=== PATIENT | male | born 2000 | race Caucasian/White ===

== ENCOUNTER 2018-04-09 10:40 | Emergency (ER) | payer OTHER ==
[2018-04-09] MEDS ORDERED: ONDANSETRON 4 MG/2 ML VIAL IVP ONE (11:01)
[2018-04-09] MEDS ORDERED: NS 1,000 ML IV ONE ×2 (11:01→11:29)
--- NOTE | 2018-04-09 11:02 | EDPHY ---
General - History Smoking Status: Never smoked Time Seen by Provider: 04/09/18 10:56 Narrative: Independent physician evaluation. I evaluated and participated in the management of the patient. I also evaluated the patient independently. My co-signature indicates that I have reviewed this chart and I agree with the findings and plan of care as documented. My personal H&P findings include: The patient presents to the ED with a 24 hr history of vomiting and mild abdominal pain. The patient denies any recent antibiotic use or travel outside the [place]. The patient denies any respiratory symptoms or fever. Physical exam: General Appearance: Alert, no distress Eyes: Pupils equal and round no pallor or injection ENT, Mouth: Mucous membranes moist Respiratory: There are no retractions, lungs are clear to auscultation Cardiovascular: Regular rate and rhythm Gastrointestinal: Abdomen is soft and nontender, no masses, bowel sounds normal Neurological: A&O, normal motor function, normal sensory exam, normal cranial nerves Skin: Warm and dry, no rashes Musculoskeletal: Neck is supple nontender Extremities: symmetrical, full range of motion Psychiatric: Patient is oriented X 3, there is no agitation ED course: Patient presents to the ED with symptoms consistent with gastroenteritis. He is treated with IV fluids in the emergency department. He was also given anti emetics. The patient had marked improvement of his symptoms. The patient will be discharged home with a prescription for Zofran. His abdominal examination has remained benign. I do not feel that he warrants additional imaging. (Shyam Marshall) CHIEF COMPLAINT: Abdominal pain, vomiting HISTORY OF PRESENT ILLNESS: Patient presents with mother at bedside with complaints of "crazy abdominal pain." He states sudden onset of epigastric abdominal pain yesterday afternoon while at rest. It has been constant duration. Rated as severe, 10/10. Mild improvement when he supine Worse with palpation, sitting up and movement. Associated with 6 episodes of vomiting yesterday. Nonbloody emesis. No constipation or diarrhea. No chest pain, cough or shortness of breath. No fever. No previous episode of this. No abdominal surgeries. No trauma or injury. No other associated complaints or modifying factors. REVIEW OF SYSTEMS: 10 systems were reviewed and negative with the exception of the elements mentioned in the history of present illness. PCP: Located in [place] SPECIALISTS: None PAST MEDICAL HISTORY: Asthma PAST SURGICAL HISTORY: No abdominal surgical history SOCIAL HISTORY: Nonsmoker. Occasional alcohol marijuana use. [employer] student. Originally from [place] FAMILY HISTORY: Noncontributory EXAMINATION: General Appearance: Alert, no distress. Appears to be in discomfort. Head: normocephalic, atraumatic Eyes: Pupils equal and round, no conjunctival pallor or injection ENT, Mouth: Mucous membranes slightly dry. Airway patent. Neck: Normal inspection, supple, non-tender Respiratory: Lungs are clear to auscultation Cardiovascular: Regular rate and rhythm no murmur. Gastrointestinal: Abdomen is soft and nondistended. There is tenderness in the epigastrium periumbilical region. No right lower quadrant tenderness. No guarding. No tympany rigidity. No CVA tenderness. Bowel sounds are present. Neurological: A&O, nonfocal, light sensory symmetric. Skin: Warm and dry, no rash. No petechiae. No purpura Extremities: Nontender, no pedal edema Psychiatric: Mood and affect normal DIFFERENTIAL DIAGNOSES: Including but not limited to pancreatitis, cholecystitis, cholelithiasis, gastritis, THC hyperemesis, colitis, appendicitis MDM: 11:00 a.m. Epigastric and periumbilical abdominal pain over the past 24 hr with multiple episodes of vomiting described. He does appear to be in discomfort but his vital signs are within limits. He is in no acute distress. He does not meet SIRS criteria. IV is currently being placed while I was examining the patient. I have ordered IV fluid pain medication. Laboratory studies pending. 12:15 p.m. Laboratory studies reveal minimal leukocytosis and minimal elevation of total bilirubin. No transaminitis. He reports he is feeling significantly better at this time we minimal pain. I have ordered a GI cocktail will re-evaluate 1:15 p.m. Patient re-evaluated. He is tolerating intake by mouth. His symptoms have resolved. He has no abdominal pain at this time. We discussed the likelihood gastritis and/or gastroenteritis. We discussed the need to refrain from using alcohol and/or THC. We discussed follow up with primary care physician, and he has an appointment tomorrow morning with them. We also discussed ED precautions and he is discharged home stable condition with symptomatic prescription medications. SUPERVISION: Patient was evaluated and examined in conjunction with my secondary supervising physician as documented. We have both examined the patient. CONSULTATION: None (Lorenzo Centeno) - Objective Vital Signs: Initial Vital Signs Temperature (C) 97.7 F 04/09/18 10:44 Heart Rate 95 04/09/18 10:44 Respiratory Rate 22 H 04/09/18 10:44 Blood Pressure 145/94 H 04/09/18 10:44 O2 Sat (%) 100 04/09/18 10:44 O2 Delivery Mode Room Air Allergies/Adverse Reactions: No Known Allergies Allergy (Unverified 04/09/18 10:43) Home Medications: Medication Instructions Recorded Ondansetron Odt [Zofran Odt 4 mg 4 mg PO Q6 PRN #12 tab 04/09/18 (*)] Promethazine HCl [Phenergan 25mg 25 mg PO Q8 PRN #12 tab 04/09/18 (*)] Sucralfate [Carafate Oral Liquid 10 ml PO QID PRN #240 ml 04/09/18 100 mg/ml] Laboratory Results: Laboratory Results 04/09/18 11:00 04/09/18 11:00 04/09/18 04/09/18 04/09/18 11:06 11:00 11:00 WBC 15.03 10^3/uL H 10^3/uL (3.80-9.50) RBC 5.87 10^6/uL 10^6/uL (4.40-6.38) Hgb 16.7 g/dL g/dL (13.7-17.5) POC Hgb 17.7 gm/dL H gm/dL (13.7-17.5) Hct 47.3 % % (40.0-51.0) POC Hct 52 % H % (40-51) MCV 80.6 fL L fL (81.5-99.8) MCH 28.4 pg pg (27.9-34.1) MCHC 35.3 g/dL g/dL (32.4-36.7) RDW 13.2 % % (11.5-15.2) Plt Count 417 10^3/uL H 10^3/uL (150-400) MPV 9.5 fL fL (8.7-11.7) Neut % (Auto) 77.2 % H % (39.3-74.2) Lymph % (Auto) 13.2 % L % (15.0-45.0) [place] % (Auto) 9.2 % % (4.5-13.0) Eos % (Auto) 0.0 % L % (0.6-7.6) Baso % (Auto) 0.1 % L % (0.3-1.7) Nucleat RBC Rel Count 0.0 % % (0.0-0.2) Absolute Neuts (auto) 11.59 10^3/uL H 10^3/uL (1.70-6.50) Absolute Lymphs (auto) 1.99 10^3/uL 10^3/uL (1.00-3.00) Absolute Monos (auto) 1.39 10^3/uL H 10^3/uL (0.30-0.80) Absolute Eos (auto) 0.00 10^3/uL L 10^3/uL (0.03-0.40) Absolute Basos (auto) 0.02 10^3/uL 10^3/uL (0.02-0.10) Absolute Nucleated RBC 0.00 10^3/uL 10^3/uL (0-0.01) Immature Gran % 0.3 % % (0.0-1.1) Immature Gran # 0.04 10^3/uL 10^3/uL (0.00-0.10) POC Sodium 139 mEq/L mEq/L (135-145) Sodium 137 mEq/L mEq/L (135-145) POC Potassium 3.7 mEq/L mEq/L (3.3-5.0) Potassium 4.3 mEq/L mEq/L (3.3-5.0) POC Chloride 101 mEq/L mEq/L (97-110) Chloride 100 mEq/L mEq/L (97-110) Carbon Dioxide 20 mEq/l L mEq/l (22-31) Anion Gap 17 mEq/L H mEq/L (6-14) POC BUN 18 mg/dL mg/dL (7-23) BUN 19 mg/dL mg/dL (7-23) Creatinine 1.1 mg/dL mg/dL (0.7-1.3) POC Creatinine 1.1 mg/dL mg/dL (0.7-1.3) Estimated GFR > 60 Glucose 130 mg/dL H mg/dL (70-100) POC Glucose 134 mg/dL H mg/dL (70-100) Calcium 10.3 mg/dL mg/dL (8.5-10.4) Total Bilirubin 1.9 mg/dL H mg/dL (0.1-1.4) Conjugated Bilirubin 0.2 mg/dL mg/dL (0.0-0.5) Unconjugated Bilirubin 1.7 mg/dL H mg/dL (0.0-1.1) AST 30 IU/L IU/L (17-59) ALT 45 IU/L IU/L (21-72) Alkaline Phosphatase 108 IU/L IU/L (38-126) Total Protein 9.0 g/dL H g/dL (6.3-8.2) Albumin 5.2 g/dL H g/dL (3.5-5.0) Lipase 42 IU/L IU/L (23-300) Medications Given: Discontinued Medications Al Hydroxide/Mg Hydroxide (Maalox Susp) 30 ml PO ONCE ONE Stop: 04/09/18 12:24 Last Admin: 04/09/18 12:27 Dose: 30 ml Famotidine (Pepcid) 20 mg IVP EDNOW ONE Stop: 04/09/18 11:04 Last Admin: 04/09/18 11:25 Dose: 20 mg Hyoscyamine Sulfate (Levsin, Hyomax-Sl) 0.25 mg PO ONCE ONE Stop: 04/09/18 12:24 Last Admin: 04/09/18 12:27 Dose: 0.25 mg Sodium Chloride (Ns) 1,000 mls @ 0 mls/hr IV EDNOW ONE; Wide Open PRN Reason: Protocol Stop: 04/09/18 11:02 Last Admin: 04/09/18 11:26 Dose: 1,000 mls Sodium Chloride (Ns) 1,000 mls @ 0 mls/hr IV EDNOW ONE; Wide Open PRN Reason: Protocol Stop: 04/09/18 11:30 Last Admin: 04/09/18 12:06 Dose: 1,000 mls Lidocaine (Lidocaine 2% Viscous) 15 ml PO ONCE ONE Stop: 04/09/18 12:24 Last Admin: 04/09/18 12:27 Dose: 15 ml Morphine Sulfate (Morphine) 6 mg IVP EDNOW ONE Stop: 04/09/18 11:02 Last Admin: 04/09/18 11:25 Dose: 6 mg Ondansetron HCl (Zofran) 4 mg IVP EDNOW ONE Stop: 04/09/18 11:02 Last Admin: 04/09/18 11:27 Dose: 4 mg Point of Care Test Results: Chemistry 04/09/18 11:06 POC Sodium 139 mEq/L mEq/L (135-145) POC Potassium 3.7 mEq/L mEq/L (3.3-5.0) POC Chloride 101 mEq/L mEq/L (97-110) POC BUN 18 mg/dL mg/dL (7-23) POC Creatinine 1.1 mg/dL mg/dL (0.7-1.3) POC Glucose 134 mg/dL H mg/dL (70-100) ISTAT H&H 04/09/18 11:06 POC Hgb 17.7 gm/dL H gm/dL (13.7-17.5) POC Hct 52 % H % (40-51) Departure - Departure Disposition: Home, Routine, Self-Care Clinical Impression: Epigastric pain Gastritis Qualifiers: Gastritis type: unspecified gastritis Chronicity: acute Gastritis bleeding: without bleeding Qualified Code(s): K29.00 - Acute gastritis without bleeding Condition: Good Instructions: Gastritis (ED), Clear Liquid Diet (ED), Epigastric Pain (ED) Additional Instructions: 1. [id number] Pepcid 20 mg twice daily indefinitely 2. Zofran medication as prescribed as needed for nausea 3. Promethazine medication as prescribed as needed for nausea 4. Carafate medication as prescribed as needed for nausea and discomfort 5. Keep your appointment with primary care physician tomorrow 6. ED precautions for returning pain, vomiting, fever Referrals: NONE *PRIMARY CARE P,. [Primary Care Provider] - As per Instructions Patric Gutierrez MD [Medical Doctor] - As per Instructions Stand Alone Forms: School Excuse Prescriptions: Ondansetron Odt [Zofran Odt 4 mg (*)] 4 mg PO Q6 PRN #12 tab PRN Reason: Nausea/Vomiting, Use 1st Promethazine HCl [Phenergan 25mg (*)] 25 mg PO Q8 PRN #12 tab PRN Reason: Nausea/Vomiting, Use 1st Sucralfate [Carafate Oral Liquid 100 mg/ml] 10 ml PO QID PRN #240 ml PRN Reason: abdominal pain
[2018-04-09] MEDS ORDERED: FAMOTIDINE 20 MG/2 ML SDV IVP ONE (11:03)
[2018-04-09 11:17] LABS: PLATELET COUNT 417 10^3/uL (150-400)
[2018-04-09] MEDS ORDERED: MAG HYDROX/AL HYDROX/SIMETH 30 ML UDCUP PO ONE (12:23)
[2018-04-09] MEDS ORDERED: HYOSCYAMINE SULFATE 0.125 MG TAB PO ONE (12:23)
[2018-04-09] MEDS ORDERED: LIDOCAINE 2% VISCOUS 15 ML UDCUP PO ONE (12:23)
[2018-04-09 13:30] VITALS: BP 131/64
== END 2018-04-09 13:33 | disposition home or self-care (01) ==
DX: K29.00 Acute gastritis without bleeding (principal)
CPT/HCPCS: 82435-PO; 82565-PO; 82947-PO; 84132-PO; 84295-PO; 84520-PO; 85014-PO; 96374; J2270; J2405

== ENCOUNTER 2018-04-10 09:37 | Emergency (ER) | payer OTHER ==
[2018-04-10] MEDS ORDERED: ONDANSETRON 4 MG/2 ML VIAL ONE (09:57)
--- NOTE | 2018-04-10 09:57 | EDPHY ---
H & P Time Seen by Provider: 04/10/18 09:57 HPI/ROS: CHIEF COMPLAINT: Nausea vomiting and diarrhea HISTORY OF PRESENT ILLNESS: Patient is a 17-year-old male here with his parents complaint of continued nausea vomiting diarrhea abdominal pain. He was seen here yesterday with the same symptoms that he did not have diarrhea at that time. He was discharged with Zofran, Phenergan, Maalox and Pepcid. He says that he took Phenergan yesterday evening and was able to sleep and had no vomiting or diarrhea. This morning he tried taking finger and again and continued vomiting. He did not try taking Zofran. He has had subjective fevers for the last 3 days. Diarrhea has been nonbloody. He has had no recent travel. He has had no recent antibiotics. States that 2 days ago there is blood tinged is emesis but no blood since. He has no history of Crohn's or ulcerative colitis. He has no history of abdominal surgery. He points to his epigastrium as source of his pain. REVIEW OF SYSTEMS: Constitutional: + fever, + chills. Eyes: No discharge. ENT: No sore throat. Cardiovascular: No chest pain, no palpitations. Respiratory: No cough, no shortness of breath. Gastrointestinal: + abdominal pain, + vomiting. Genitourinary: No hematuria. Musculoskeletal: No back pain. Skin: No rashes. Neurological: No headache. Smoking Status: Never smoked Physical Exam: General Appearance: Alert and no distress. Eyes: Pupils equal and round no injection. Respiratory: Chest is nontender, lungs are clear to auscultation. Cardiac: regular rate and rhythm. Gastrointestinal: Abdomen is soft and tender to the epigastrium and right upper quadrant, no masses, bowel sounds normal. No peritoneal signs Musculoskeletal: Neck is supple and nontender. Extremities have full range of motion and are nontender. Skin: No rashes or lesions. Constitutional: Initial Vital Signs Temperature (C) 36.6 C 04/10/18 09:40 Heart Rate 64 04/10/18 09:40 Respiratory Rate 18 04/10/18 09:40 Blood Pressure 140/83 H 04/10/18 09:40 O2 Sat (%) 98 04/10/18 09:40 O2 Delivery Mode Room Air Allergies/Adverse Reactions: No Known Allergies Allergy (Verified 04/10/18 15:10) Home Medications: Medication Instructions Recorded Ondansetron Odt [Zofran Odt 4 mg 4 mg PO Q6 PRN #12 tab 04/09/18 (*)] Promethazine HCl [Phenergan 25mg 25 mg PO Q8 PRN #12 tab 04/09/18 (*)] Sucralfate [Carafate Oral Liquid 10 ml PO QID PRN #240 ml 04/09/18 100 mg/ml] Promethazine HCl 12.5 mg RC BID #8 supp.rect 04/10/18 Medical Decision Making - Diagnostics Imaging Results: Imaging Impressions Abdomen Ultrasound 04/10/18 10:07 Impression: 1. No significant abnormality right upper quadrant ultrasound. Findings discussed with Maxwell Luz PAC at 1157 hour, 04/10/2018. ED Course/Re-evaluation: Patient here with 2 days of nausea vomiting diarrhea. He is afebrile not tachycardic. Labs reveal no significant leukocytosis and his labs also show no changes in his total bilirubin, LFTs, lipase levels. He is given IV hydration along with pain control with Toradol and 2 mg of morphine. He is tolerating p.o. At time of discharge. This is most likely gastroenteritis that we did discuss indications for return to the emergency room. Differential Diagnosis: Ileus, bowel obstruction, perforated gastric ulcer, irritable bowel, appendicitis, cholecystitis - Data Points Laboratory Results: Laboratory Results 04/10/18 09:53 04/10/18 09:53 04/10/18 04/10/18 04/10/18 10:55 09:53 09:53 WBC 11.09 10^3/uL H 10^3/uL (3.80-9.50) RBC 5.10 10^6/uL 10^6/uL (4.40-6.38) Hgb 14.4 g/dL g/dL (13.7-17.5) Hct 43.0 % % (40.0-51.0) MCV 84.3 fL fL (81.5-99.8) MCH 28.2 pg pg (27.9-34.1) MCHC 33.5 g/dL g/dL (32.4-36.7) RDW 13.4 % % (11.5-15.2) Plt Count 294 10^3/uL 10^3/uL (150-400) MPV 9.9 fL fL (8.7-11.7) Neut % (Auto) 69.8 % % (39.3-74.2) Lymph % (Auto) 23.0 % % (15.0-45.0) [place] % (Auto) 6.5 % % (4.5-13.0) Eos % (Auto) 0.1 % L % (0.6-7.6) Baso % (Auto) 0.3 % % (0.3-1.7) Nucleat RBC Rel Count 0.0 % % (0.0-0.2) Absolute Neuts (auto) 7.75 10^3/uL H 10^3/uL (1.70-6.50) Absolute Lymphs (auto) 2.55 10^3/uL 10^3/uL (1.00-3.00) Absolute Monos (auto) 0.72 10^3/uL 10^3/uL (0.30-0.80) Absolute Eos (auto) 0.01 10^3/uL L 10^3/uL (0.03-0.40) Absolute Basos (auto) 0.03 10^3/uL 10^3/uL (0.02-0.10) Absolute Nucleated RBC 0.00 10^3/uL 10^3/uL (0-0.01) Immature Gran % 0.3 % % (0.0-1.1) Immature Gran # 0.03 10^3/uL 10^3/uL (0.00-0.10) Sodium 141 mEq/L mEq/L (135-145) Potassium 3.7 mEq/L mEq/L (3.3-5.0) Chloride 103 mEq/L mEq/L (97-110) Carbon Dioxide 23 mEq/l mEq/l (22-31) Anion Gap 15 mEq/L H mEq/L (6-14) BUN 15 mg/dL mg/dL (7-23) Creatinine 1.0 mg/dL mg/dL (0.7-1.3) Estimated GFR > 60 Glucose 123 mg/dL H mg/dL (70-100) Calcium 9.4 mg/dL mg/dL (8.5-10.4) Total Bilirubin 1.2 mg/dL mg/dL (0.1-1.4) AST 25 IU/L IU/L (17-59) ALT 36 IU/L IU/L (21-72) Alkaline Phosphatase 79 IU/L IU/L (38-126) Total Protein 7.6 g/dL g/dL (6.3-8.2) Albumin 4.4 g/dL g/dL (3.5-5.0) Lipase 73 IU/L IU/L (23-300) Urine Opiates Screen NON-NEGATIVE H (NEGATIVE) Urine Barbiturates NEGATIVE (NEGATIVE) Ur Phencyclidine Scrn NEGATIVE (NEGATIVE) Ur Amphetamine Screen NEGATIVE (NEGATIVE) U Benzodiazepines Scrn NEGATIVE (NEGATIVE) Urine Cocaine Screen NEGATIVE (NEGATIVE) U Marijuana (THC) Screen NON-NEGATIVE H (NEGATIVE) Medications Given: Discontinued Medications Acetaminophen (Tylenol) 1,000 mg PO EDNOW ONE Stop: 04/10/18 10:08 Last Admin: 04/10/18 12:59 Dose: Not Given Famotidine (Pepcid) 20 mg IVP EDNOW ONE Stop: 04/10/18 10:01 Last Admin: 04/10/18 10:13 Dose: 20 mg Sodium Chloride (Ns) 1,000 mls @ 0 mls/hr IV ONCE ONE PRN Reason: Wide Open Stop: 04/10/18 10:01 Last Admin: 04/10/18 10:02 Dose: 1,000 mls Ketorolac Tromethamine (Toradol) 15 mg IVP EDNOW ONE Stop: 04/10/18 10:08 Last Admin: 04/10/18 10:13 Dose: 15 mg Morphine Sulfate (Morphine) 2 mg IVP EDNOW ONE Stop: 04/10/18 11:17 Last Admin: 04/10/18 12:46 Dose: Not Given Ondansetron HCl (Zofran) 4 mg IVP EDNOW ONE Stop: 04/10/18 10:01 Last Admin: 04/10/18 10:02 Dose: 4 mg Departure - Departure Disposition: Home, Routine, Self-Care Clinical Impression: Gastroenteritis Condition: Good Instructions: Gastroenteritis (ED) Additional Instructions: This or severe pain, nausea and vomiting is most likely a virus causing gastroenteritis. If you feel continue nausea try Zofran under you're tongue up to 3 times a day. She had persistent vomiting he may try a promethazine suppository. He should be improving over the next few days and not worsening. If you feel worse in any way please return to the ER for further evaluation. Referrals: NONE *PRIMARY CARE P,. [Primary Care Provider] - As per Instructions [facility],. [Clinic] - As per Instructions Stand Alone Forms: School Excuse Prescriptions: Promethazine HCl 12.5 mg RC BID #8 supp.rect
[2018-04-10] MEDS: ONDANSETRON 4 MG/2 ML VIAL IVP ONE (10:02)
[2018-04-10] MEDS: NS 1,000 ML IV ONE (10:02)
[2018-04-10] MEDS: FAMOTIDINE 20 MG/2 ML SDV IVP ONE (10:13)
[2018-04-10] MEDS: KETOROLAC 15 MG/1 ML SDV IVP ONE (10:13)
[2018-04-10 10:19] LABS: PLATELET COUNT 294 10^3/uL (150-400)
[2018-04-10] MEDS: ACETAMINOPHEN 500 MG TAB PO ONE (12:59)
[2018-04-10 13:00] VITALS: BP 109/55
== END 2018-04-10 13:00 | disposition home or self-care (01) ==
DX: K52.9 Noninfective gastroenteritis and colitis, unspecified (principal)
CPT/HCPCS: 80305; 96374; J1885; J2270; J2405

== ENCOUNTER 2018-04-10 14:53 | Observation (INO) | payer OTHER ==
[2018-04-10] MEDS ORDERED: PROMETHAZINE HCL 25 MG/ML INJ IVP ONE ×2 (15:28→15:29)
--- NOTE | 2018-04-10 15:33 | EDPHY ---
H & P Time Seen by Provider: 04/10/18 15:18 HPI/ROS: CHIEF COMPLAINT: Abdominal pain and vomiting HISTORY OF PRESENT ILLNESS: A personally saw this patient earlier this morning presented with 3 days of nausea vomiting and diarrhea. Labs are unremarkable this morning and he had an abdominal ultrasound showing no biliary disease. He was unable to fill the promethazine prescription today. He continues vomiting. Does report chronic marijuana use daily and has been trying to use less frequently for the last week. REVIEW OF SYSTEMS: Constitutional: No fever, no chills. Eyes: No discharge. ENT: No sore throat. Cardiovascular: No chest pain, no palpitations. Respiratory: No cough, no shortness of breath. Gastrointestinal: + abdominal pain, + vomiting. Genitourinary: No hematuria. Musculoskeletal: No back pain. Skin: No rashes. Neurological: No headache. Smoking Status: Never smoked Physical Exam: General Appearance: Alert and no distress. Eyes: Pupils equal and round no injection. Respiratory: Chest is nontender, lungs are clear to auscultation. Cardiac: regular rate and rhythm. Gastrointestinal: Abdomen is soft and nontender, no masses, bowel sounds normal. Musculoskeletal: Neck is supple and nontender. Extremities have full range of motion and are nontender. Skin: No rashes or lesions. Constitutional: Initial Vital Signs Temperature (C) 36.6 C 04/10/18 15:08 Heart Rate 59 L 04/10/18 15:08 Respiratory Rate 18 04/10/18 15:08 Blood Pressure 136/77 H 04/10/18 15:08 O2 Sat (%) 100 04/10/18 15:08 O2 Delivery Mode Room Air Allergies/Adverse Reactions: No Known Allergies Allergy (Verified 04/10/18 15:10) Home Medications: Medication Instructions Recorded Ondansetron Odt [Zofran Odt 4 mg 4 mg PO Q6 PRN #12 tab 04/09/18 (*)] Promethazine HCl [Phenergan 25mg 25 mg PO Q8 PRN #12 tab 04/09/18 (*)] Sucralfate [Carafate Oral Liquid 10 ml PO QID PRN #240 ml 04/09/18 100 mg/ml] Promethazine HCl 12.5 mg RC BID #8 supp.rect 04/10/18 Medical Decision Making - Diagnostics Imaging Results: Imaging Impressions Abdomen CT 04/10/18 15:27 Impression: 1. Normal appendix. No bowel obstruction or adynamic ileus. 2. Trace free fluid in the low pelvis. No localized intra-abdominal inflammatory process. Findings discussed with Emergency Department physician facilities assistant, Maxwell Luz PA-C on April 10, 2018 at 1705 hours. ED Course/Re-evaluation: 17-year-old male here with his 3rd visit and 24 hr for nausea vomiting diarrhea and abdominal pain. Ultrasound and CT scan of his abdomen reveal no acute intra -abdominal process. He is requiring IV pain and antiemetic to control his vomiting and pain. He will be admitted for observation and pain and nausea control. Dr. Key accepts admission for observation. Differential Diagnosis: Ileus, small-bowel obstruction, appendicitis, cholecystitis - Data Points Medications Given: Discontinued Medications Promethazine HCl (Phenergan) 25 mg IVP ONCE ONE Stop: 04/10/18 15:29 Last Admin: 04/10/18 16:25 Dose: Not Given Promethazine HCl (Phenergan) 12.5 mg IVP ONCE ONE Stop: 04/10/18 15:30 Last Admin: 04/10/18 15:49 Dose: 12.5 mg Departure - Departure Clinical Impression: Intractable vomiting, Gastroenteritis, Marijuana abuse Condition: Fair Referrals: NONE *PRIMARY CARE P,. [Primary Care Provider] - As per Instructions
[2018-04-10] MEDS ORDERED: IOPAMIDOL (ISOVUE-300) 100 ML BTL ONE (16:40)
--- NOTE | 2018-04-10 18:03 | PDGENHP ---
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 He was fine until approximately 72 hr ago when he had abrupt onset of nausea and began vomiting. He has been having frequent vomiting ever since then along with intermittent diarrhea. There is no blood to speak of but he does think he has had some fevers. There has been intermittently some diffuse crampy abdominal pain with all of this. No skin lesions or rashes, joint ocular or mucosal symptoms otherwise. He has never had any illness like this before and per the patient in his mother who is at the bedside there is no family history of inflammatory bowel disease or other concerning illnesses other than a grandmother with rheumatoid arthritis. The patient has not traveled, has not had any outdoor ahmadi to drink, has not had awareness of any contact sore acquaintances who have a similar illness, and is not aware of any outbreak of similar illness at the [place]. He does state that he ate a spicy -from a local restaurant shortly before onset of his symptoms, in fact states that he did not finish his meal because he started feeling poorly. The patient does not use nonsteroidal anti-inflammatories, does not drink much in way of alcohol, has not been using any acid suppression medicines. 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 I have reviewed the list and ordered appropriate medicines. PHYSICAL EXAMINATION: Vital Signs: During the course of the patient's 3 ER visits yesterday and today , his vital signs have all been normal with no fever Director Of Dementia Operations: Examination: General: alert, oriented, appear sedated probably from pain and nausea medicines he has received but is easily aroused and has a normal conversation with me with normal mentation and normal affect, no signs of mental health illness Skin: warm, dry, good color, no rash HEENT: normal with no ocular or mucosal findings Neck: no mass or jvd Resps: relaxed Lungs: clear breath sounds Heart: regular, no murmur Abdomen: soft, nondistended, +BS, no mass, some very mild tenderness without guarding or rebound Upper Extremities: normal Lower Extremities: no edema, warm No Bleeding or bruising Neurologic: normal speech/language, normal consultant intern, no focal weakness No adenopathy IV site: looks normal LABORATORY DATA: [place] [address] with predominant neutrophils, and a mildly elevated platelet count; platelets are now normal and white count has decreased a bit to 11,000 but still high There is an anion gap acidosis on both of his chemistry studies with a low CO2 Electrolytes and renal function are normal Evidence of concentration with high albumin and protein Normal lipase and liver enzymes RADIOLOGY STUDIES: I reviewed images from an abdominal ultrasound done earlier. I see no evidence of gallstones, hepatitis, fatty liver, ascites, abscess or renal abnormalities I reviewed images from a CT scan of the abdomen done this evening, and I do not see any inflammatory process, obstruction, abscess, or other concerning findings ASSESSMENT: * intractable abdominal pain nausea vomiting and diarrhea appears to be due to a gastroenteritis This is the patient's 3rd ER visit in each time he has been treated here he has had some symptomatic improvement with fluids in medications will need to have return of severe pain and vomiting episodes along with diarrhea shortly after returning home. At this point the patient will need to stay here so that we can maintain adequate hydration and symptom relief. PLANS: * Observation status for now * Continued IV hydration * To start with will have scheduled antiemetics with p.r.n. Additional * Consider antidiarrheals if he continues to have no fever or bleeding * GI pathogen panel PCR is ordered * Other measures depending on his progress or any other diagnostic findings I have reviewed the patient's case in detail with Maxwell Luz of the ER I have reviewed the patient's past medical records as part of this assessment, including previous ER visit records here
[2018-04-10] MEDS ORDERED: ZOLPIDEM TARTRATE 5 MG TAB PO PRN (19:00)
[2018-04-10] MEDS ORDERED: PROMETHAZINE HCL 25 MG/ML INJ IVP PRN (19:00)
[2018-04-10] MEDS ORDERED: ACETAMINOPHEN 325 MG TAB PO PRN (19:00)
[2018-04-10] MEDS: NS 1,000 ML IV SCH (19:12)
[2018-04-10] MEDS ORDERED: MELATONIN 3 MG TAB PO SCH (21:00)
[2018-04-10] MEDS: ONDANSETRON 4 MG/2 ML VIAL IVP SCH (22:08)
[2018-04-11] MEDS: ONDANSETRON 4 MG/2 ML VIAL IVP SCH ×3 (01:10→09:14)
[2018-04-11] MEDS: NS 1,000 ML IV SCH ×2 (01:37→08:19)
--- NOTE | 2018-04-11 07:57 | PDMN ---
Medical Necessity Medical necessity: MCG: M360 Vomiting: Pt presents with N/V/D/ abd pain fever X 72 hours - pt unable to maintain hydration 3 ED visit in last 2 days. Pt will be NPO with IVF, IV antiemetics - anticipate > 2 MN ongoing med nec care, further eval and tx.
[2018-04-11] MEDS ORDERED: ONDANSETRON DISINTEGRATING 4 MG TAB PO PRN (11:00)
[2018-04-11 11:31] VITALS: BP 117/67
--- NOTE | 2018-04-11 12:12 | ASDISCHSUM ---
Discharge Information Plan Status:Home with No Needs Medically Cleared to Leave:04/11/2018 Discharge Date:04/11/2018 CM D/C Disposition:Home, Routine, Self-Care ADT D/C Disposition:Home, Routine, Self-Care Projected Discharge Date:04/11/2018 Transportation at D/C:Family Discharge Delay Reason: Follow-Up Date:04/11/2018 Discharge Slot: Final Diagnosis: Placement Information Patient Contact Information Contact Name:GARRETT Relationship:Mother Address:[address] Work Phone: City:[facility] Phone: State/Zip Code:[place] [address] Email: Financial Information Financial Class:HMO and PPO Plans Primary Plan Desc:[employer] Primary Plan Number:[id number] Secondary Plan Desc: Secondary Plan Number: Assessment Information LACE LACE Length of stay for Answers: 2 days current admission Acuity / Level of Answers: Yes Care: Did the patient have an inpatient admission? # of Emergency department Answers: 3-4 visits in the last 6 months Score: 8 Date Signed: 04/11/2018 12:09 PM Electronically Signed By:SUZANNE Loco Case Management Discharge Plan Note Case Management Discharge Discharge Order Complete? Answers: Yes Patient to Obtain Answers: via Family Medications Transportation Arranged Answers: Family/Friends Discharge Comments Notes: Pt was admitted with nausea and vomiting after 2 visits to the ED over the past 2 days. He is from [place] and a [employer] student. His mother has been present. He is discharging home today with no CM needs. Date Signed: 04/11/2018 12:11 PM Electronically Signed By:Jennifer Diaz, NIGHT TIME NANNY Intervention Information
--- NOTE | 2018-04-12 04:02 | GDS ---
SERVICE: [facility] hospitalists. CONSULTS: None. PROCEDURE: Abdominal CT, which showed normal appendix, no bowel obstruction or ileus. Trace fluid in the low pelvis. No localized intraabdominal process. H AND P: Please see previously dictated note by Dr. Key. ADMISSION DIAGNOSES: 1. Abdominal pain. 2. Nausea, vomiting, diarrhea. DISCHARGE DIAGNOSES: 1. Abdominal pain, resolved. 2. Nausea, vomiting, diarrhea resolved. 3. Positive marijuana screen. HOSPITAL COURSE: Lul had an acute onset of abdominal symptoms including pain , nausea, vomiting, and diarrhea that has resulted in 3 emergency department visits from 04/09 to 04/10. He had evaluations done at all the visits including a CT scan that was done on the day of admission. Acute surgical causes were excluded by CT scan and he was admitted with a presumed diagnosis of infectious gastroenteritis for IV fluid, IV anti-emetics, and pain medication. Over the course of his overnight stay his pain greatly improved. On re-examination on the morning of discharge, he had no pain on abdominal palpation. His vital signs had been stable and he was afebrile. He tolerated clear liquids and a trial of a bland diet without any further nausea, diarrhea, or vomiting. Stool samples were requested, but he did not have any diarrhea throughout his stay. He was empirically placed on contagious precautions because of recent local norovirus cases. His mother was in the room at the time of discharge instructions. They both felt comfortable with discharge today. I have instructed them to continue with a clear diet and/or very bland diet for at least the next 1 to 2 days before gradually increasing to a regular diet. They have a prescription for ondansetron at home and can use that if needed. If at any time he has inability to remain hydrated, return of intractable nausea, vomiting, fever or return of abdominal pain, they should return immediately for re-evaluation. Otherwise, suggested he follow up with his primary care provider in [place] within the next week. He was noted to be marijuana-positive on his initial opiate screen, but symptoms were not felt to be consistent with marijuana use or overuse syndromes. He was counseled about marijuana use by hospitalist. DISCHARGE MEDICATIONS: No prescriptions were given to him as he already had a prescription for ondansetron and Phenergan at home. DISCHARGE INSTRUCTIONS: I have reviewed the possible infectious nature of his illness with him and his mother. Strongly encourage frequent handwashing and limited contact with others until his symptoms have completely resolved. /[id number]/MODL MTDD
== END 2018-04-11 13:14 | disposition home or self-care (01) ==
LOC: INTOOBSV 17:11 → OBSVTOIN 17:11 → F3E 18:07
PROVIDERS: ADMIT Internal Medicine; ATTEND Internal Medicine
DX: R10.9 Unspecified abdominal pain (principal); R11.2 Nausea with vomiting, unspecified; R19.7 Diarrhea, unspecified; E86.9 Volume depletion, unspecified; Z23 Encounter for immunization
CPT/HCPCS: 74177; 90471; 96361; 96374; 96375; 96376; 99285; G0378; G0008; J2405; J2550; Q9967